=== PATIENT | female | born 2000 | race Caucasian/White ===

== ENCOUNTER 2019-01-12 17:05 | Emergency (ER) | payer BC, MEDICAID ==
[2019-01-12 18:14] LABS: CHLORIDE,CL 105 mmol/L (98-107); SODIUM,NA 141 mmol/L (136-145)
[2019-01-12 18:17] LABS: ANION GAP 14.6 mmol/L (10-20)
--- NOTE | 2019-01-12 18:50 | CT ---
[id number] CT/CT Head WO IV EXAM: CT Head WO IV CLINICAL DATA: VERTIGO COMPARISON STUDY: None FINDINGS: No intracranial hemorrhage, extra-axial fluid collection, mass, or acute ischemia. No hydrocephalus. Paranasal sinuses and mastoid air cells are clear. IMPRESSION: Normal examination of the brain. Dany Beltre MD 01/12/19 [id number] Thank you for allowing us to participate in the care of your patient.
[2019-01-12] MEDS ORDERED: Meclizine 25 MG Tab PO ONE (18:52)
--- NOTE | 2019-01-13 00:45 | EDM.PDOC ---
ED HPI GENERAL MEDICAL PROBLEM - General Chief Complaint: General Stated Complaint: DIZZINESS AFTER EATING Time Seen by Provider: 01/12/19 17:10 Source of Information: Reports: Patient History Limitations: Reports: No Limitations - History of Present Illness INITIAL COMMENTS - FREE TEXT/NARRATIVE: presents to ER with complaints of intermittent vertigo that she has been experiencing for the past several weeks. She feels as though the symptoms are happening postprandially. She states that the symptoms started today an hour after eating. She characterizes the sensation as spinning. She states that when she rotates her head, she continues to have a rotational sensation after her head has stopped. Denies any acute vision loss or change. No numbness/tingling in extremities. No Difficulty with speech. Denies any head trauma. No hearing change noted. She denies any chest pain or shortness of breath. Denies feeling lightheaded. No palpitations. No vomiting, but she feels nauseated. She denies any history of inner ear pathology. Onset: Today Location: Reports: Head (see HPI), Generalized Quality: Reports: Other (vertigo) Associated Symptoms: Reports: Nausea/Vomiting - Related Data Allergies Allergy/AdvReac Type Severity Reaction Status Date / Time Dairy Products Allergy Abdominal Verified 01/12/19 17:33 Cramps Home Meds: Home Meds Escitalopram [Lexapro] 20 mg PO DAILY 01/12/19 [History] Norethindrone-Ethinyl Estrad [Nortrel] 1 each PO DAILY 01/12/19 [History] Past Medical History Psychiatric History: Reports: Anxiety Social & Family History - Tobacco Use Smoking Status *Q: Never Smoker - Recreational Drug Use Recreational Drug Use: No ED ROS GENERAL - Review of Systems Review Of Systems: See Below Constitutional: Denies: Fever, Chills, Weakness, Fatigue, Diaphoresis HEENT: Reports: Vertigo. Denies: Ear Discharge, Ear Pain, Eye Discharge, Eye Pain, Hearing Loss, Nosebleed, Nose Pain, Rhinitis, Sinus Problem, Throat Pain, Vision Change Respiratory: Reports: No Symptoms Cardiovascular: Reports: No Symptoms Endocrine: Reports: No Symptoms GI/Abdominal: Reports: Nausea : Reports: No Symptoms Musculoskeletal: Reports: No Symptoms Skin: Reports: No Symptoms Neurological: Reports: Other (See HPI) Psychiatric: Reports: No Symptoms Hematologic/Lymphatic: Reports: No Symptoms Immunologic: Reports: No Symptoms ED EXAM, GENERAL - Physical Exam Exam: See Below Exam Limited By: No Limitations General Appearance: Alert, WD/WN, No Apparent Distress Eye Exam: Bilateral Eye: EOMI, Normal Fundi, Normal Inspection, Nystagmus, PERRL Ears: Normal External Exam, Normal Canal, Hearing Grossly Normal, Normal TMs Ear Exam: Bilateral Ear: Auricle Normal, Canal Normal, TM normal Nose: Normal Inspection, No Blood Throat/Mouth: Normal Inspection, Normal Oropharynx, Normal Voice, No Airway Compromise Head: Atraumatic, Normocephalic Neck: Normal Inspection, Supple, Non-Tender, Full Range of Motion Respiratory/Chest: No Respiratory Distress, Lungs Clear, Normal Breath Sounds, No Accessory Muscle Use Cardiovascular: Normal Peripheral Pulses, Regular Rate, Rhythm, No Murmur Peripheral Pulses: 4+: Radial (L) (Female) Exam: Deferred Rectal (Female) Exam: Deferred Extremities: Normal Inspection, Normal Range of Motion, Non-Tender, No Pedal Edema, Normal Capillary Refill Neurological: Alert, Oriented, CN II-XII Intact, Normal Cognition, Normal Gait, Normal Reflexes, No Motor/Sensory Deficits Psychiatric: Normal Affect, Normal Mood Skin Exam: Warm, Dry, Intact, Normal Color, No Rash Course - Vital Signs Last Recorded V/S: Last Vital Signs Temp 37.4 C 01/12/19 17:15 Pulse 85 01/12/19 17:15 Resp 16 01/12/19 17:15 BP 133/89 01/12/19 17:15 Pulse Ox 99 01/12/19 17:15 - Orders/Labs/Meds Labs: Laboratory Tests 01/12/19 01/12/19 01/12/19 Range/Units 17:48 17:48 18:06 WBC 7.7 (4.0-10.0) x10^3/uL RBC 4.26 (4.00-5.50) x10^6/uL Hgb 11.7 L (12.0-16.0) g/dL Hct 36.1 (33.0-47.0) % MCV 84.7 (78.0-93.0) fL MCH 27.5 (26.0-32.0) pg MCHC 32.4 (32.0-36.0) g/dL RDW Coeff of Lai 16.1 H (10.0-15.0) % Plt Count 365 (130-400) x10^3/uL Neut % (Auto) 57.3 (50.0-80.0) % Lymph % (Auto) 30.6 (25.0-50.0) % [place] % (Auto) 10.5 (2.0-11.0) % Eos % (Auto) 1.2 (0.0-4.0) % Baso % (Auto) 0.4 (0.2-1.2) % Sodium 141 (136-145) mmol/L Potassium 3.6 (3.5-5.1) mmol/L Chloride 105 (98-107) mmol/L Carbon Dioxide 25 (21-32) mmol/L Anion Gap 14.6 (10-20) mmol/L BUN 13 (7-18) mg/dL Creatinine 0.7 (0.55-1.02) mg/dL Est Cr Clr Drug Dosing TNP Estimated GFR (MDRD) > 60 Glucose 115 H (74-106) mg/dL Calcium 8.3 L (8.5-10.1) mg/dL Corrected Calcium 8.94 (8.5-10.1) mg/dL Phosphorus 2.8 (2.6-4.7) mg/dL Magnesium 1.9 (1.8-2.4) mg/dL Total Bilirubin 0.3 (0.2-1.0) mg/dL AST 21 (15-37) U/L ALT 29 (14-59) U/L Alkaline Phosphatase 91 (46-116) U/L C-Reactive Protein < 0.2 (<=0.9) mg/dL Total Protein 7.0 (6.4-8.2) g/dL Albumin 3.2 L (3.4-5.0) g/dL Globulin 3.8 Albumin/Globulin Ratio 0.84 Urine Color Yellow (YELLOW) Urine Appearance Clear (CLEAR) Urine pH 7.0 (5.0-8.0) Ur Specific [place] 1.020 Urine Protein Negative (NEGATIVE) mg/dL Urine Glucose (UA) Negative (NEGATIVE) mg/dL Urine Ketones Negative (NEGATIVE) mg/dL Urine Occult Blood Negative (NEGATIVE) Urine Nitrite Negative (NEGATIVE) Urine Bilirubin Negative (NEGATIVE) Urine Urobilinogen 0.2 (0.2) EU/dL Ur Leukocyte Esterase Negative (NEGATIVE) Urine RBC 0-5 (NOT SEEN) /HPF Urine WBC 0-5 (NOT SEEN) /HPF Ur Squamous Epith Cells Few H (NEGATIVE) /HPF Amorphous Sediment Rare Urine Bacteria Not seen (NEGATIVE) /HPF Urine Mucus Not seen (NEGATIVE) /LPF POC Urine HCG, Qual (NEGATIVE) 01/12/19 Range/Units 18:06 WBC (4.0-10.0) x10^3/uL RBC (4.00-5.50) x10^6/uL Hgb (12.0-16.0) g/dL Hct (33.0-47.0) % MCV (78.0-93.0) fL MCH (26.0-32.0) pg MCHC (32.0-36.0) g/dL RDW Coeff of Lai (10.0-15.0) % Plt Count (130-400) x10^3/uL Neut % (Auto) (50.0-80.0) % Lymph % (Auto) (25.0-50.0) % [place] % (Auto) (2.0-11.0) % Eos % (Auto) (0.0-4.0) % Baso % (Auto) (0.2-1.2) % Sodium (136-145) mmol/L Potassium (3.5-5.1) mmol/L Chloride (98-107) mmol/L Carbon Dioxide (21-32) mmol/L Anion Gap (10-20) mmol/L BUN (7-18) mg/dL Creatinine (0.55-1.02) mg/dL Est Cr Clr Drug Dosing Estimated GFR (MDRD) Glucose (74-106) mg/dL Calcium (8.5-10.1) mg/dL Corrected Calcium (8.5-10.1) mg/dL Phosphorus (2.6-4.7) mg/dL Magnesium (1.8-2.4) mg/dL Total Bilirubin (0.2-1.0) mg/dL AST (15-37) U/L ALT (14-59) U/L Alkaline Phosphatase (46-116) U/L C-Reactive Protein (<=0.9) mg/dL Total Protein (6.4-8.2) g/dL Albumin (3.4-5.0) g/dL Globulin Albumin/Globulin Ratio Urine Color (YELLOW) Urine Appearance (CLEAR) Urine pH (5.0-8.0) Ur Specific [place] Urine Protein (NEGATIVE) mg/dL Urine Glucose (UA) (NEGATIVE) mg/dL Urine Ketones (NEGATIVE) mg/dL Urine Occult Blood (NEGATIVE) Urine Nitrite (NEGATIVE) Urine Bilirubin (NEGATIVE) Urine Urobilinogen (0.2) EU/dL Ur Leukocyte Esterase (NEGATIVE) Urine RBC (NOT SEEN) /HPF Urine WBC (NOT SEEN) /HPF Ur Squamous Epith Cells (NEGATIVE) /HPF Amorphous Sediment Urine Bacteria (NEGATIVE) /HPF Urine Mucus (NEGATIVE) /LPF POC Urine HCG, Qual Negative (NEGATIVE) Meds: Medications Discontinued Medications Generic Name Dose Route Start Last Admin Trade Name Joelq PRN Reason Stop Dose Admin Meclizine HCl 25 mg 01/12/19 18:52 01/12/19 19:03 Antivert PO 01/12/19 18:53 25 mg ONETIME ONE Administration - Radiology Interpretation Free Text/Narrative:: CT brain negative for acute pathology Departure - Departure Time of Disposition: 19:08 Disposition: Home, Self-Care 01 Clinical Impression: Vertigo - Discharge Information Instructions: Vertigo, [id number] Referrals: Fani Boyd PA-C [Primary Care Provider] - Forms: ED Department Discharge Additional Instructions: Meclizine 25mg 1 every 4-6 hours as needed for dizziness. I will have physical therapy contact you sometime in the next several days. Recheck in clinic in 10-14 days, sooner if not gradually improving. - Assessment/Plan Plan: Meclizine 25mg 1 every 4-6 hours as needed for dizziness. I will have physical therapy contact you sometime in the next several days. Recheck in clinic in 10-14 days, sooner if not gradually improving.
== END 2019-01-12 19:08 | disposition home or self-care (01) ==
LOC: VM.ED 17:05
DX: R42 Dizziness and giddiness (principal); F41.9 Anxiety disorder, unspecified; Z79.899 Other long term (current) drug therapy; Z91.011 Allergy to milk products
CPT/HCPCS: 36415; 70450; 80053; 81001; 81025; 83735; 84100; 85025; 86140; 99284; A9270

== ENCOUNTER 2019-11-25 06:49 | Emergency (ER) | payer BC, MEDICAID ==
--- NOTE | 2019-11-25 07:26 | EDM.PDOC ---
ED HPI GENERAL MEDICAL PROBLEM - General Chief Complaint: ENT Problem Stated Complaint: TONSILS AND UVULA SWOLLEN Time Seen by Provider: 11/25/19 07:15 Source of Information: Reports: Patient History Limitations: Reports: No Limitations - History of Present Illness INITIAL COMMENTS - FREE TEXT/NARRATIVE: Patient comes emergency department today from home with complaints of swollen tonsils and uvula. This patient yesterday was without any complaints at all and felt just fine. Other than some sinus congestion pressure and drainage that she relates to allergies. This morning when she woke up she immediately felt like there was swelling in her throat. She looked inside the mirror and said her tonsils and her uvula are very large. She has no difficulty breathing or swallowing. She has no fever no chills. No foul breath. No funny taste in her mouth. No ear pain. She still complains of the sinus congestion and drainage. No difficulty breathing cough or congestion. No fever no chills. No nausea no vomiting. She has not been exposed anyone ill. Posterior Throat Pain Score (Numeric/FACES): 2 - Related Data Allergies Allergy/AdvReac Type Severity Reaction Status Date / Time Dairy Products Allergy Abdominal Verified 11/25/19 07:13 Cramps Home Meds: Home Meds Escitalopram [Lexapro] 40 mg PO DAILY 01/12/19 [History] Norethindrone-Ethin. Estradiol [Nortrel] 1 each PO DAILY 01/12/19 [History] predniSONE 40 mg PO DAILY #10 tab 11/25/19 [Rx] Past Medical History Psychiatric History: Reports: Anxiety Social & Family History - Tobacco Use Smoking Status *Q: Never Smoker ED ROS ENT - Review of Systems Review Of Systems: Comprehensive ROS is negative, except as noted in HPI. ED EXAM, ENT - Physical Exam Exam: See Below Exam Limited By: No Limitations General Appearance: Alert, WD/WN, No Apparent Distress Eye Exam: Bilateral Eye: EOMI, Normal Inspection, PERRL Ears: Normal External Exam, Normal Canal, Normal TMs Nose: Other (There is quite a bit of thick dry hard mucus. Her turbinates are very pale and boggy. Quite a bit of congestion.) Mouth/Throat: Normal Gums, Normal Lips, Normal Teeth. No: Normal Oropharynx ( There is no erythema induration injection. There is quite a bit of postnasal drip and cobblestoning of the posterior pharynx as well as the tonsils. There is no exudate. There is no foul smell. There is no lymphadenopathy.) Head: Atraumatic, Normocephalic Neck: Normal Inspection, Supple, Non-Tender, Full Range of Motion. No: Lymphadenopathy (L), Lymphadenopathy (R) Respiratory/Chest: No Respiratory Distress, Lungs Clear, No Accessory Muscle Use , Chest Non-Tender Cardiovascular: Normal Peripheral Pulses, Regular Rate, Rhythm GI/Abdominal: Normal Bowel Sounds, Soft, Non-Tender (Female) Exam: Deferred Rectal (Female) Exam: Deferred Back: Normal Inspection, Full Range of Motion Extremities: Normal Inspection, Normal Range of Motion, No Pedal Edema, Normal Capillary Refill Neurological: Alert, Oriented, Normal Cognition, No Motor/Sensory Deficits Psychiatric: Normal Affect, Normal Mood Skin: Warm, Dry, Intact, Normal Color, No Rash Course - Vital Signs Last Recorded V/S: Last Vital Signs Temp 37.4 C 11/25/19 06:58 Pulse 96 11/25/19 06:58 Resp 16 11/25/19 06:58 BP 138/85 11/25/19 06:58 Pulse Ox 98 11/25/19 06:58 - Orders/Labs/Meds Orders: Active Orders 24 hr Category Date Time Status STREP SCRN A RAPID W CULT CONF [RM] Stat Lab 11/25/19 07:05 Received Labs: Microbiology 11/25/19 07:05 Group A Streptococcus Rapid Screen - Final Throat NEGATIVE STREP A SCREEN REFERENCE RANGE: NEGATIVE - Re-Assessments/Exams Free Text/Narrative Re-Assessment/Exam: 11/25/19 07:27 Her strep screen is negative. It really does not appear acutely infectious more irritative. This is most likely due to postnasal drip and sinus congestion. We will try a short course of steroids as well as Flonase and nasal rinses. 11/25/19 07:37 The patient was comfortable with this plan and her questions answered. Departure - Departure Time of Disposition: 07:28 Disposition: Home, Self-Care 01 Clinical Impression: PND (post-nasal drip) Sinusitis Qualifiers: Sinusitis location: other Chronicity: unspecified Qualified Code(s): J32.9 - Chronic sinusitis, unspecified - Discharge Information Instructions: How to Perform a Sinus Rinse, [id number] Referrals: PCP,None [Primary Care Provider] - Additional Instructions: [id number] nasal rinse such as a Netti Pot twice daily. 10 minutes later. Flonase 1 sprays each nostril twice daily for a week and then 1 spray each nostril once daily. Prednisone 40mg once a day for the next 5 days. Lots of fluids to keep hydrated and mobilize secretions. Return to the ED if new or worsening symptoms. Follow up with PCP in the next 5-6 days if not improving sooner if worse. Sepsis Event Note (ED) - Evaluation Sepsis Screening Result: No Definite Risk - Focused Exam Vital Signs: Vital Signs Temp Pulse Resp BP Pulse Ox 11/25/19 06:58 37.4 C 96 16 138/85 98 - My Orders Last 24 Hours: My Active Orders 11/25/19 07:05 STREP SCRN A RAPID W CULT CONF [RM] Stat - Assessment/Plan Last 24 Hours: My Active Orders 11/25/19 07:05 STREP SCRN A RAPID W CULT CONF [RM] Stat Assessment:: Post Nasal drip Acute sinusitis most likely allergic. Plan: [id number]-[id number] nasal rinse such as a Netti Pot twice daily. 10 minutes later. Flonase 1 sprays each nostril twice daily for a week and then 1 spray each nostril once daily. Prednisone 40mg once a day for the next 5 days. Lots of fluids to keep hydrated and mobilize secretions. Return to the ED if new or worsening symptoms. Follow up with PCP in the next 5-6 days if not improving sooner if worse.
== END 2019-11-25 07:44 | disposition home or self-care (01) ==
LOC: VM.ED 06:49
DX: J32.9 Chronic sinusitis, unspecified (principal); F41.9 Anxiety disorder, unspecified; Z91.011 Allergy to milk products; Z79.899 Other long term (current) drug therapy
CPT/HCPCS: 87081; 87880-QW; 99283